=== PATIENT | female | born 1960 | race African-American/Black ===

== ENCOUNTER 2019-09-04 19:26 | Emergency (ER) | payer MEDICAID ==
[~2019-09-04] VITALS: Ht 162.6 cm; Wt 95.0 kg
[2019-09-04] MEDS ORDERED: NITROGLYCERIN 0.4MG TABLET SL SL PRN (22:45)
[2019-09-04] MEDS ORDERED: ASPIRIN 81MG TABLET PO ONE (22:45)
[2019-09-04 22:55] LABS: EOSINOPHILS % 3.1 % (0.0-5.0); HEMOGLOBIN. 13.2 g/dL (12.0-16.0); LYMPHOCYTES % 42.2 % (20.0-50.0); MEAN CORPUSCULAR HEMOGLOBIN 31.1 pg (28.0-32.0); MEAN CORPUSCULAR VOLUME 91.5 fL (81.0-99.0); MEAN PLATELET VOLUME 9.8 fl (7.4-10.4); MONOCYTES % 12.9 % (2.0-8.0); NEUTROPHILS % 40.8 % (40.0-76.0); PLATELET 201 x1000/uL (130-400); RED BLOOD CELL COUNT 4.26 mill/uL (4.2-5.4)
[2019-09-04 22:57] LABS: CHLORIDE 106 mEq/L (98-107)
[2019-09-04 23:00] LABS: ETHANOL BLOOD < 10 mg/dL
[2019-09-04 23:25] LABS: *AMPHETAMINES SCREEN URINE NEGATIVE (NEGATIVE); *BARBITURATES SCREEN URINE NEGATIVE (NEGATIVE); *BENZODIAZEPINES SCREEN URINE NEGATIVE (NEGATIVE); *COCAINE SCREEN URINE NEGATIVE (NEGATIVE); CANNABINOID URINE SCREEN NEGATIVE (NEGATIVE); METHADONE URINE SCREEN NEGATIVE (NEGATIVE); PHENCYCLIDINE URINE SCREEN NEGATIVE (NEGATIVE)
[2019-09-04 23:27] LABS: OPIATES URINE SCREEN NEGATIVE (NEGATIVE)
[2019-09-05 01:50] VITALS: BP 140/75
== END 2019-09-05 03:19 | disposition home or self-care (01) ==
LOC: ER 19:26
DX: R07.89 Other chest pain (principal); I10 Essential (primary) hypertension; Z98.890 Other specified postprocedural states
CPT/HCPCS: 36415; 71045; 80053; 80305; 80320; 83880; 84484; 85025; 93005; 99285; Z7610; G0480

== ENCOUNTER 2022-08-06 17:18 | Emergency (ER) | payer MEDICAID, OTHER ==
[~2022-08-06] VITALS: Ht 165.1 cm; Wt 65.0 kg
[2022-08-06] MEDS ORDERED: DICYCLOMINE 10 MG/5 ML ORAL SYR PO ONE (18:15)
[2022-08-06] MEDS ORDERED: MAGNESIUM/ALUMINUM HYDROXIDE/SIMETHICONE 30ML UDC PO ONE (18:15)
[2022-08-06] MEDS ORDERED: VISCOUS LIDOCAINE 2% 15 ML UDC PO ONE (18:15)
[2022-08-06 20:22] VITALS: BP 121/55
== END 2022-08-06 20:40 | disposition home or self-care (01) ==
LOC: ER 17:18
DX: R68.89 Other general symptoms and signs (principal); I10 Essential (primary) hypertension
CPT/HCPCS: 71045; 99283; Z7610

== ENCOUNTER 2024-03-24 19:40 | Emergency (ER) | payer MEDICAID, OTHER ==
[~2024-03-24] VITALS: Ht 170.2 cm; Wt 83.0 kg
[2024-03-24 20:24] VITALS: O2SAT 100
[2024-03-24 21:21] LABS: BASOPHILS % 0.6 % (0.0-2.0); EOSINOPHILS % 2.7 % (0.0-5.0); HEMATOCRIT. 39.9 % (36.0-48.0); LYMPHOCYTES % 41.9 % (20.0-50.0); MEAN CORPUSCULAR HEMOGLOBIN 30.1 pg (28.0-32.0); MEAN CORPUSCULAR HGB CONC 32.7 g/dL (31.0-37.0); MEAN CORPUSCULAR VOLUME 92.2 fL (81.0-99.0); MEAN PLATELET VOLUME 9.1 fl (7.4-10.4); MONOCYTES % 13.5 % (2.0-8.0); NEUTROPHILS % 41.3 % (40.0-76.0); PLATELET 217 x1000/uL (130-400); RED BLOOD CELL COUNT 4.33 mill/uL (4.2-5.4); RED CELL DISTRIBUTION WIDTH 12.9 % (11.6-14.6); WHITE BLOOD COUNT 4.2 x1000/uL (4.5-11.0)
[2024-03-24 21:23] LABS: CHLORIDE 102 mEq/L (98-107); SODIUM 137 mEq/L (136-145)
[2024-03-24 21:25] LABS: CALCIUM 9.8 mg/dL (8.7-10.4); CARBON DIOXIDE 33 mEq/L (21-32)
[2024-03-24 21:30] LABS: CREATININE 0.9 mg/dL (0.6-1.0); GLUCOSE 95 mg/dL (70-105); UREA NITROGEN BLOOD 15 mg/dL (9-23)
[2024-03-24 21:32] LABS: ALANINE AMINOTRANSFERASE 28 IU/L (10-49); ALBUMIN 4.3 g/dL (3.2-4.8); ASPARTATE AMINOTRANSFERASE 29 IU/L (<34); BILIRUBIN DIRECT 0.1 mg/dL (<=3.0); BILIRUBIN TOTAL 0.5 mg/dL (0.1-1.0); PROTEIN TOTAL 7.6 g/dL (6.0-8.3)
[2024-03-25] MEDS ORDERED: VANCOMYCIN 1000MG/250ML 250 ML IV SCH (00:15)
[2024-03-25] MEDS: PIPERACILLIN/TAZO 3.375G/50ML 50 ML IV SCH (00:30)
[2024-03-25] MEDS: ACETAMINOPHEN 500MG TABLET PO ONE (00:47)
[2024-03-25] MEDS: ONDANSETRON 4MG ODT PO ONE (00:47)
[2024-03-25] MEDS: VANCOMYCIN 1G PREMIX 200 ML IV NR (00:53)
[2024-03-25 00:57] VITALS: BP 169/73; PULSE 88; RESP 15; TEMP 36.50292; O2SAT 100
[2024-03-25] MEDS ORDERED: PIPERACILLIN/TAZO 3.375G/50ML 50 ML IV SCH (06:00)
== END 2024-03-25 00:57 | disposition home or self-care (01) ==
LOC: ER 19:40
DX: K81.9 Cholecystitis, unspecified (principal); I10 Essential (primary) hypertension
CPT/HCPCS: 99284; 74176; 76705; 80076; 80048; 83690; 85025; 36415; 93005; Q0162; J3370